=== PATIENT | female | born 1960 | race African-American/Black ===

== ENCOUNTER → 2016-07-15 | Day surgery (SDC) | payer OTHER ==
[~2016-07-15] MED LIST: ADVAIR 230-21 INH; VITAMIN D250000 UNIT PO; VOLTAREN75 MG; [UNRECOGNIZED DRUG - REMARK] PO
--- NOTE | ~2016-07-15 | OR ---
Unit #: [id number] #: [id number] Patient: ATIF MURRY [id number] [address] [place], [place] [address] [id number] O MR#: [id number] NAME: ATIF MURRY ROOM: Date of Procedure: 07/15/2016 Admission Date: 07/15/2016 Surgeon: Tres Chandra Jr., M.D. : 1960 Attending Physician: Tres Chandra Jr., M.D. Referring Physician: Tres Chandra Jr., M.D. Primary Care Physician: Violeta Breaux Np OPERATIVE REPORT INDICATIONS FOR PROCEDURE The patient is a 56-year-old black female, who presents desiring screening colonoscopy. She has had no previous scopes, no change in bowel habits and has had her prep at home. She understands the procedure including the risks, including that of bleeding and perforation, and consents. PREOPERATIVE DIAGNOSIS Desired screening colonoscopy, rule out pathology. POSTOPERATIVE DIAGNOSIS Pandiverticulosis with no other abnormalities. ANESTHESIA MAC anesthesia. PROCEDURE PERFORMED Flexible colonoscopy to the cecum. DESCRIPTION OF PROCEDURE The patient was positioned in [place] position with the left side down. After being given MAC anesthesia, digital rectal examination was performed, which revealed no palpable mass or tenderness. No blood or stool in the rectal ampulla. The Olympus colonoscope was advanced through the anal canal up the rectum and retroflexed down to the area of the anorectal region. There was no evidence of any fissures. No significant internal hemorrhoids. The scope was then straightened and advanced up in the rectosigmoid, in the sigmoid and descending colon areas, where there were extensive diverticulosis without diverticulitis. The scope was then advanced around the splenic flexure and the transverse colon and again noted were multiple diverticula. The scope was then advanced around the hepatic flexure and the ascending colon down the area of the cecum. Again, noted were multiple diverticula in the right colon. Multiple attempts in advancing the scope up the distal ileum were unsuccessful. The scope was slowly removed. There were no tumors, polyps, cancer, or AVMs. No evidence of any colitis or acute diverticulitis. The caliber of the colon appeared normal throughout. The prep was only fair with some formed and liquid stool present throughout the entire length of the colon. The scope was removed. The patient tolerated the procedure well and was discharged in satisfactory condition. Unit #: [id number] #: [id number] Patient: ATIF MURRY Dictated by... Tres Chandra Jr., MDeon. PATRICIA/jp TD: 07/15/2016 21:16 JOB #: [id number] OPERATIVE REPORT Page 1 of 1 X Tres Chandra MD X PROCEDURE OPERATIVE NOTE
== END | disposition home or self-care (01) ==
LOC: COPS 07:51
DX: Z12.11 Encounter for screening for malignant neoplasm of colon (principal); K57.30 Diverticulosis of large intestine without perforation or abscess without bleeding
CPT/HCPCS: J2250